=== PATIENT | female | born 1975 | race Caucasian/White ===

== ENCOUNTER 2019-02-09 07:05 | Inpatient (IN) | payer OTHER ==
[~2019-02-09 07:05] MED LIST: Bupivacaine 0.25% 10 ML SDV ONE
[2019-02-09] MEDS ORDERED: Nalbuphine 10 MG/1 ML Vial IVPUSH PRN (07:23)
[2019-02-09] MEDS ORDERED: Ondansetron 4 MG/2 ML SDV IVPUSH PRN ×2 (07:23→10:10)
[2019-02-09] MEDS ORDERED: Sodium Chloride 0.9% 10 ML Syringe FLUSH PRN (07:23)
--- NOTE | 2019-02-09 07:26 | PCM.LDHP ---
L&D History of Present Illness - General Date of Service: 02/09/19 Admit Problem/Dx: Patient Status Order with Admit Dx/Problem 02/09/19 07:23 Patient Status [ADT] Routine Admission Diagnosis/Problem Admission Diagnosis/Problem Advanced maternal age during Source of Information: Patient History Limitations: Reports: No Limitations - History of Present Illness Introduction:: Patient is a 43 y/o at 39 5/7 wks who presents for IOL for AMA. Doing well. Continues to have discomfort in here hips/back. Irregular contractions. Notes good FM. 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: , Spontaneous (x1), Other (See Below ) (20 week loss presumed cervical incompetence) : 6 Para: 3 LMP (Approximate): Neurological History: Reports: Migraines Psychiatric History: Reports: Anxiety, Depression - Past Surgical History HEENT Surgical History: Reports: Oral Surgery (wisdom tooth) Female Surgical History: Reports: Section, LEEP, Tubal Ligation, Other (See Below) (Cerclage x4) Social & Family History - Tobacco Use Smoking Status *Q: Former Smoker - Caffeine Use Caffeine Use: Reports: Coffee - Alcohol Use Alcohol Use History: No - Recreational Drug Use Recreational Drug Use: No H&P Review of Systems - Review of Systems: Review Of Systems: See Below General: Reports: No Symptoms Pulmonary: Reports: No Symptoms Cardiovascular: Reports: No Symptoms Gastrointestinal: Reports: No Symptoms Genitourinary: Reports: No Symptoms Musculoskeletal: Reports: Back Pain Psychiatric: Reports: No Symptoms L&D Exam - Exam Exam: See Below - OB Specific Contraction Intensity: Irritability Movement: Active Heart Tones: Present Heart Tones per Min: 135 Heart Rate (FHR) Variability: Moderate (6-25 bmp) Presentation: Vertex - Orellana Score Orellana Score Cervix Position: Midposition Orellana Score Consistency: Soft Orellana Score Effacement: >80% Orellana Score Dilation: 3-4 cm Orellana Score 's Station: -1 ,0 Orellana Score Total: 10 - Exam General: Alert, Oriented, Cooperative Lungs: Clear to Auscultation, Normal Respiratory Effort Cardiovascular: Regular Rate, Regular Rhythm GI/Abdominal Exam: Soft, Non-Tender Genitourinary: Normal external exam Extremities: Normal Inspection Skin: Warm, Dry, Intact - Patient Data Result Diagrams: 02/09/19 07:45 - Problem List (1) 39 weeks gestation of SNOMED Code(s): 54353743 ICD Code: Z3A.39 - 39 WEEKS GESTATION OF Status: Acute Current Visit: Yes (2) AMA (advanced maternal age) multigravida 35+ SNOMED Code(s): 611726341 ICD Code: O09.529 - SUPERVISION OF ELDERLY MULTIGRAVIDA, UNSPECIFIED TRIMESTER Status: Acute Current Visit: Yes Qualifiers: Trimester: third trimester Qualified Code(s): O09.523 - Supervision of elderly multigravida, third trimester (3) History of SNOMED Code(s): 477336337 ICD Code: Z98.891 - HISTORY OF UTERINE SCAR FROM PREVIOUS SURGERY Status: Acute Current Visit: Yes (4) Desires (vaginal after ) trial SNOMED Code(s): 071995094, 635576132 ICD Code: O34.219 - MATERNAL CARE FOR UNSP TYPE SCAR FROM PREVIOUS DEL Status: Acute Current Visit: Yes Problem List Initiated/Reviewed/Updated: Yes Orders Last 24hrs: Active Orders 24 hr Category Date Time Status Patient Status [ADT] Routine ADT 02/09/19 07:23 Ordered Communication Order [RC] ASDIRECTED Care 02/09/19 07:23 Ordered Communication Order [RC] ASDIRECTED Care 02/09/19 07:23 Ordered Communication Order [RC] ASDIRECTED Care 02/09/19 07:23 Ordered Monitoring [RC] INTERMITTENT Care 02/09/19 07:23 Ordered Non Stress Test [RC] PER UNIT ROUTINE Care 02/09/19 07:23 Ordered Notify Provider [RC] ASDIRECTED Care 02/09/19 07:23 Ordered Notify Provider [RC] PRN Care 02/09/19 07:23 Ordered Peripheral IV Care [RC] . DIRECTED Care 02/09/19 07:24 Ordered Vaginal Exam [RC] ASDIRECTED Care 02/09/19 07:23 Ordered Vital Signs [RC] ASDIRECTED Care 02/09/19 07:23 Ordered Vital Signs [RC] PER UNIT ROUTINE Care 02/09/19 07:23 Ordered Regular Diet [DIET] Diet 02/09/19 Breakfast Ordered CBC W/O DIFF,HEMOGRAM [HEME] Routine Lab 02/09/19 07:23 Ordered RAPID PLASMA REAGIN,RPR [CHEM] Routine Lab 02/09/19 07:23 Ordered TYPE AND SCREEN [BBK] Routine Lab 02/09/19 07:23 Ordered Lactated Ringers [Ringers, Lactated] 1,000 ml Med 02/09/19 07:30 Ordered IV ASDIRECTED Nalbuphine [Nubain] Med 02/09/19 07:23 Ordered 10 mg IVPUSH Q2H PRN Ondansetron [Zofran] Med 02/09/19 07:23 Ordered 4 mg IVPUSH Q4H PRN Oxytocin/Lactated Ringers [Pitocin in LR 10 Units/1,000 Med 02/09/19 07:30 Ordered ML] 10 unit in 1,000 ml IV .CONTINUOUS Oxytocin/Lactated Ringers [Pitocin in LR 10 Units/1,000 Med 02/09/19 07:30 Ordered ML] 10 unit in 1,000 ml IV TITRATE Sodium Chloride 0.9% [Saline Flush] Med 02/09/19 07:23 Ordered 10 ml FLUSH ASDIRECTED PRN Electronic Heart Tones Internal [WOMSER] Per Unit Oth 02/09/19 07:23 Ordered Routine Peripheral IV Insertion Adult [OM.PC] Routine Oth 02/09/19 07:23 Ordered Assessment/Plan Comment:: * Labs * GBS negative, no need for antibiotics * Pitocin and AROM for IOL * Pain management per patient preference * Anticipate
[2019-02-09] MEDS ORDERED: Oxytocin/Lactated Ringers 10 UNIT/1,000 ML BAG IV SCH ×2 (07:30)
[2019-02-09] MEDS: Lactated Ringers 1,000 ML IV SCH ×3 (08:30→12:05)
[2019-02-09] MEDS ORDERED: fentaNYL 100 MCG/2 ML SDV EPIDUR PRN (10:10)
[2019-02-09] MEDS ORDERED: fentaNYL/Bupivacaine/NS 2 MCG-0.125% 250 ML EPIDUR PRN (10:10)
[2019-02-09] MEDS ORDERED: ePHEDrine 50 MG/ML SDV IVPUSH PRN (10:10)
--- NOTE | 2019-02-09 10:12 | PCM.PREANE ---
Preanesthetic Assessment - Anesthesia/Transfusion/Family Hx Anesthesia History: Prior Anesthesia Without Reaction Family History of Anesthesia Reaction: No Transfusion History: No Prior Transfusion(s) Intubation History: Unknown - Review of Systems General: No Symptoms Pulmonary: No Symptoms Cardiovascular: No Symptoms Gastrointestinal: No Symptoms (GERD) Neurological: Headache (migraines), Tingling (Right leg sciatica with : 08/13) Other: Reports: Depression, Anxiety - Physical Assessment NPO Status Date: 02/09/19 NPO Status Time: 06:30 Vital Signs: Last Vital Signs Temp 36.4 C 02/09/19 07:44 Pulse Resp 18 02/09/19 07:44 BP 128/79 02/09/19 07:44 Pulse Ox 98 02/09/19 07:44 Height: 1.7 m Weight: 100.698 kg ASA Class: 2 Mental Status: Alert & Oriented x3 Airway Class: Mallampati = 2 Dentition: Reports: Normal Dentition, Caries Thyro-Mental Finger Breadths: 3 Mouth Opening Finger Breadths: 3 ROM/Head Extension: Full Lungs: Clear to Auscultation, Normal Respiratory Effort Cardiovascular: Regular Rate, Regular Rhythm, No Murmurs - Lab Values: Laboratory Last Values WBC 5.80 K/mm3 (3.98-10.04) 02/09/19 07:45 RBC 4.14 M/mm3 (3.98-5.22) 02/09/19 07:45 Hgb 12.1 gm/dl (11.2-15.7) 02/09/19 07:45 Hct 36.5 % (34.1-44.9) 02/09/19 07:45 MCV 88.2 fl (79.4-94.8) 02/09/19 07:45 MCH 29.2 pg (25.6-32.2) 02/09/19 07:45 MCHC 33.2 g/dl (32.2-35.5) 02/09/19 07:45 RDW Std Deviation 46.1 fL (36.4-46.3) 02/09/19 07:45 Plt Count 203 K/mm3 (182-369) 02/09/19 07:45 MPV 9.7 fl (9.4-12.3) 02/09/19 07:45 Above labs reviewed and noted and within acceptable ranges to proceed with epidural if desired. - Allergies Allergies/Adverse Reactions: Allergies Allergy/AdvReac Type Severity Reaction Status Date / Time acetaminophen [From Percocet] Allergy Redness Verified 01/28/16 17:20 oxycodone [From Percocet] Allergy Redness Verified 01/28/16 17:20 propoxyphene Allergy Redness Verified 01/28/16 17:20 [From Darvocet-N] - Anesthesia Plan Pre-Op Medication Ordered: None - Acknowledgements Anesthesia Type Planned: Epidural Pt an Appropriate Candidate for the Planned Anesthesia: Yes Alternatives and Risks of Anesthesia Discussed w Pt/Guardian: Yes Pt/Guardian Understands and Agrees with Anesthesia Plan: Yes PreAnesthesia Questionnaire - Past Health History Medical/Surgical History: Denies 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: Neurological History: Reports: Migraines Psychiatric History: Reports: Anxiety, Depression - Past Surgical History Female Surgical History: Reports: Section, LEEP, Tubal Ligation, Other (See Below) - SUBSTANCE USE Smoking Status *Q: Former Smoker Tobacco Use Within Last Twelve Months: No Second Hand Smoke Exposure: No Recreational Drug Use History: No - HOME MEDS Home Medications: Home Meds buPROPion [Wellbutrin] 75 mg PO DAILY 01/21/16 [History] - CURRENT (IN HOUSE) MEDS Current Meds: Current Medications Ephedrine Sulfate (Ephedrine Sulfate) 5 mg IVPUSH ASDIRECTED PRN PRN Reason: Hypotension Fentanyl (Sublimaze) 100 mcg EPIDUR Q3H PRN PRN Reason: Pain Fentanyl/Bupivacaine HCl (Fentanyl/Bupivacaine/Ns 2 Mcg-0.125% 250 Ml) ml EPIDUR CONTINUOUS PRN PRN Reason: Pain Lactated Ringer's (Ringers, Lactated) 1,000 mls @ 40 mls/hr IV ASDIRECTED DONOVAN Last Admin: 02/09/19 08:30 Dose: 40 mls/hr Oxytocin/Lactated Ringer's (Pitocin In Lr 10 Units/1,000 Ml) 10 unit in 1,000 mls @ 12 mls/hr IV TITRATE DONOVAN; Protocol Last Titration: 02/09/19 09:07 Dose: 4 munits/min, 24 mls/hr Oxytocin/Lactated Ringer's (Pitocin In Lr 10 Units/1,000 Ml) 10 unit in 1,000 mls @ 500 mls/hr IV .CONTINUOUS DONOVAN Phenylephrine HCl 1 mg/ Sodium (Chloride) 10.1 mls @ 1 mls/sec IV TITRATE DONOVAN; Protocol Nalbuphine HCl (Nubain) 10 mg IVPUSH Q2H PRN PRN Reason: Pain Ondansetron HCl (Zofran) 4 mg IVPUSH Q4H PRN PRN Reason: Nausea/Vomiting Ondansetron HCl (Zofran) 4 mg IVPUSH ONETIME PRN PRN Reason: Nausea/Vomiting Sodium Chloride (Saline Flush) 10 ml FLUSH ASDIRECTED PRN PRN Reason: Keep Vein Open
[2019-02-09] MEDS ORDERED: Phenylephrine 1 MG in Sodium Chloride 0.9% 10 ML IV SCH (10:15)
[2019-02-09] MEDS ORDERED: fentaNYL 100 MCG/2 ML SDV ONE (10:21)
--- NOTE | 2019-02-09 19:45 | PCM.DEL ---
L & D Note - General Info Date of Service: 02/09/19 - Delivery Note Labor: Induced by ARM, Induced by Oxytocin Delivery Outcome: Livebirth Infant Delivery Method: Spontaneous Vaginal Delivery-Single Infant Delivery Mode: Vacuum Extraction Presentation: Right Occiput Posterior (ROP) Nuchal Cord: None Anesthesia Type: Epidural Amniotic Fluid Description: Clear Episiotomy Type: Midline Suture type: Vicryl Suture size: 2-0 Placenta: Intact, Spontaneous Cord: 3 Vessels Estimated Blood Loss: 200 : Bulb Syringe, Stimulated, Warmed, Landis Used, Warmer Used Score 1 min: 6 Score 5 min: 8 Delivery Comments (Free Text/Narrative):: The patient was pushing in the dorsal lithotomy position. Sterile vaginal exam complete/complete/+3 station. Patient began complaining of severe right shoulder pain during pushing effort. This escalated as time went on. head thought to be in ZAC position. Maternal pushing effort was good and the pelvis was felt to be adequate for an instrument assisted delivery. Given increasing pain and associated variable decelerations that were widening decision made to proceed with vacuum assisted vaginal delivery. The mushroom cup was placed without difficulty at 1906. There was one pop off at 191. Re- applied at 1911 and with another pop off at 1916. Did at this point decide to make a midline episiotomy to facility delivery. Had replaced vacuum one more time, but did not maintain suction and so discarded. Patient encouraged to push and delivery occurred from ROP presentation at 192. No nuchal cord present. With gentle downward traction the shoulders and body delivered. The umbilical cord was clamped and cut and the was taken to warmer for assessment. Cord gas segment obtained. Cord blood obtained. Placenta allowed time to separate and expelled intact. Inspection of the perineum following delivery with midline episiotomy only, no extension. This was repaired with a 2-0 vicryl in the typical fashion. Vacuum Extractor Progress Note - Alternative Labor Strategies Considered Alternative Labor Strategies Considered:: Reports: Yes Strategies Considered:: Reports: Contraction Intensity Adequate, Position Changes Used to Facilitate Rotation & Descent, Empty Bladder Indications Considered:: Reports: Yes Indications:: Reports: Suspicion of Immediate or Potential Compromise ( also concerns for possible impending uterine rupture given shoulder pain ) Time Out:: Reports: Yes - Patient Prepared Patient Prepared:: Reports: Yes Informed Consent:: Reports: Verbal Risks: Reports: Yes Risks Include:: Reports: Laceration, Shoulder Dystocia, Maternal Injury Anesthesia/Analgesia Adequate:: Reports: Yes - Probability of Success High Probability of Success:: Reports: Yes Weight Estimated:: Reports: AGA Patient Diabetic:: Reports: No Pelvis Adequate:: Reports: Yes Position:: Thought to be ZAC, was ROP Asynclitic:: Reports: No Station:: +3 - Application Time Maximum Application Time & Number of Pop-Offs Predetermined:: Reports: Yes Maximum Pressure Maintained in Green Zone (cm Hg):: 550 Total Application Time (min): *max=20min: 11 Number of Times Cup Disengaged:: 2 Type of Vacuum Used:: Reports: Cup: Mushroom type Vacuum Extraction: Successful - Exit Strategy Exit strategy available:: Reports: Yes and resuscitation teams readily available:: Reports: Yes - General Info Date of Service: 02/09/19 - Patient Data Vitals - Most Recent: Last Vital Signs Temp 36.4 C 02/09/19 07:44 Pulse Resp 18 02/09/19 07:44 BP 128/79 02/09/19 07:44 Pulse Ox 98 02/09/19 07:44 Weight - Most Recent: 100.698 kg I&O - Last 24 Hours: Intake & Output 02/09/19 02/09/19 02/09/19 06:59 14:59 22:59 Intake Total 1999 120 Balance 1999 120 - Problem List & Annotations (1) 39 weeks gestation of SNOMED Code(s): 21170017 Code(s): Z3A.39 - 39 WEEKS GESTATION OF Status: Acute Current Visit: Yes (2) AMA (advanced maternal age) multigravida 35+ SNOMED Code(s): 748566736 Code(s): O09.529 - SUPERVISION OF ELDERLY MULTIGRAVIDA, UNSPECIFIED TRIMESTER Status: Acute Current Visit: Yes Qualifiers: Trimester: third trimester Qualified Code(s): O09.523 - Supervision of elderly multigravida, third trimester (3) History of SNOMED Code(s): 615376939 Code(s): Z98.891 - HISTORY OF UTERINE SCAR FROM PREVIOUS SURGERY Status: Acute Current Visit: Yes (4) Desires (vaginal after ) trial SNOMED Code(s): 516663380, 446343755 Code(s): O34.219 - MATERNAL CARE FOR UNSP TYPE SCAR FROM PREVIOUS DEL Status: Acute Current Visit: Yes (5) Vacuum-assisted vaginal delivery SNOMED Code(s): 53299322201157454 Code(s): Z37.9 - OUTCOME OF DELIVERY, UNSPECIFIED Status: Acute Current Visit: Yes - Problem List Review Problem List Initiated/Reviewed/Updated: Yes - My Orders Last 24 Hours: My Active Orders 02/09/19 07:23 Patient Status [ADT] Routine Communication Order [RC] ASDIRECTED Communication Order [RC] ASDIRECTED Communication Order [RC] ASDIRECTED Monitoring [RC] INTERMITTENT Notify Provider [RC] ASDIRECTED Notify Provider [RC] PRN Vaginal Exam [RC] ASDIRECTED Vital Signs [RC] ASDIRECTED Vital Signs [RC] PER UNIT ROUTINE RAPID PLASMA REAGIN,RPR [CHEM] Routine Nalbuphine [Nubain] 10 mg IVPUSH Q2H PRN Ondansetron [Zofran] 4 mg IVPUSH Q4H PRN Sodium Chloride 0.9% [Saline Flush] 10 ml FLUSH ASDIRECTED PRN Electronic Heart Tones Internal [WOMSER] Per Unit Routine Peripheral IV Insertion Adult [OM.PC] Routine 02/09/19 07:24 Peripheral IV Care [RC] . DIRECTED 02/09/19 07:30 Lactated Ringers [Ringers, Lactated] 1,000 ml IV ASDIRECTED Oxytocin/Lactated Ringers [Pitocin in LR 10 Units/1,000 ML] 10 unit in 1,000 ml IV .CONTINUOUS Oxytocin/Lactated Ringers [Pitocin in LR 10 Units/1,000 ML] 10 unit in 1,000 ml IV TITRATE 02/09/19 Breakfast Regular Diet [DIET] - Assessment Assessment:: 43 y/o G6 now P4024 PPD#0 from [facility] at 39 5/7 wks - Plan Plan:: [facility] * Routine cares * Encourage breast feeding * Discharge home in 2 days
[2019-02-09] MEDS ORDERED: Docusate Sodium 100 MG Cap PO PRN (20:28)
[2019-02-09] MEDS ORDERED: Benzocaine/Menthol 20%-0.5% Spray 56 GM Canister TOP PRN (20:28)
[2019-02-09] MEDS ORDERED: Witch Hazel Medicated Pads 40/Jar TOP PRN (20:28)
[2019-02-09] MEDS ORDERED: diphenhydrAMINE 50 MG/ML SDV ONE (21:13)
[2019-02-09] MEDS: Ibuprofen 600 MG Tab PO PRN (21:36)
[2019-02-10] MEDS: Ibuprofen 600 MG Tab PO PRN ×3 (03:38→20:31)
--- NOTE | 2019-02-10 05:36 | PCM.PNPP ---
- General Info Date of Service: 02/10/19 Functional Status: Reports: Pain Controlled, Tolerating Diet, Ambulating, Urinating - Review of Systems General: Reports: No Symptoms Pulmonary: Reports: No Symptoms Cardiovascular: Reports: No Symptoms Gastrointestinal: Reports: No Symptoms Genitourinary: Reports: Other (perineal pain) Musculoskeletal: Reports: No Symptoms Neurological: Reports: No Symptoms - General Info Date of Service: 02/10/19 - Patient Data Vital Signs - Most Recent: Last Vital Signs Temp 36.4 C 02/09/19 07:44 Pulse Resp 18 02/09/19 07:44 BP 128/79 02/09/19 07:44 Pulse Ox 98 02/09/19 07:44 Weight - Most Recent: 100.698 kg I&O - Last 24 Hours: Intake & Output 02/09/19 02/09/19 02/10/19 14:59 22:59 06:59 Intake Total 1999 120 Balance 1999 120 Lab Results - Last 24 Hours: Laboratory Results - last 24 hr 02/09/19 02/09/19 Range/Units 07:45 07:45 WBC 5.80 (3.98-10.04) K/mm3 RBC 4.14 (3.98-5.22) M/mm3 Hgb 12.1 (11.2-15.7) gm/dl Hct 36.5 (34.1-44.9) % MCV 88.2 (79.4-94.8) fl MCH 29.2 (25.6-32.2) pg MCHC 33.2 (32.2-35.5) g/dl RDW Std Deviation 46.1 (36.4-46.3) fL Plt Count 203 (182-369) K/mm3 MPV 9.7 (9.4-12.3) fl Blood Type A POSITIVE Gel Antibody Screen Negative Med Orders - Current: Current Medications Acetaminophen (Tylenol) 650 mg PO Q4H PRN PRN Reason: mild pain or fever Benzocaine/Menthol (Dermoplast Pain Relief Coats) 0 gm TOP ASDIRECTED PRN PRN Reason: Perineal Comfort Measure Last Admin: 02/09/19 21:39 Dose: 1 canister Docusate Sodium (Colace) 100 mg PO BID PRN PRN Reason: Constipation Last Admin: 02/09/19 21:37 Dose: 100 mg Ibuprofen (Motrin) 600 mg PO Q6H PRN PRN Reason: Mild pain or fever Last Admin: 02/10/19 03:38 Dose: 600 mg Witch Santa (Tucks) 1 pad TOP ASDIRECTED PRN PRN Reason: Perineal Comfort Measure Last Admin: 02/09/19 21:39 Dose: 1 canister Discontinued Medications Diphenhydramine HCl (Benadryl) Confirm Administered Dose 50 mg .ROUTE .[employer] ONE Stop: 02/09/19 21:14 Last Admin: 02/09/19 21:19 Dose: 50 mg Ephedrine Sulfate (Ephedrine Sulfate) 5 mg IVPUSH ASDIRECTED PRN PRN Reason: Hypotension Fentanyl (Sublimaze) 100 mcg EPIDUR Q3H PRN PRN Reason: Pain Last Admin: 02/09/19 12:08 Dose: 100 mcg Fentanyl (Sublimaze) Confirm Administered Dose 100 mcg .ROUTE .[employer] ONE Stop: 02/09/19 10:22 Fentanyl/Bupivacaine HCl (Fentanyl/Bupivacaine/Ns 2 Mcg-0.125% 250 Ml) 250 ml EPIDUR CONTINUOUS PRN PRN Reason: Pain Last Admin: 02/09/19 10:34 Dose: 250 ml Lactated Ringer's (Ringers, Lactated) 1,000 mls @ 40 mls/hr IV ASDIRECTED DONOVAN Last Admin: 02/09/19 12:05 Dose: 40 mls/hr Oxytocin/Lactated Ringer's (Pitocin In Lr 10 Units/1,000 Ml) 10 unit in 1,000 mls @ 12 mls/hr IV TITRATE DONOVAN; Protocol Last Titration: 02/09/19 13:47 Dose: 12 munits/min, 72 mls/hr Oxytocin/Lactated Ringer's (Pitocin In Lr 10 Units/1,000 Ml) 10 unit in 1,000 mls @ 500 mls/hr IV .CONTINUOUS DONOVAN Phenylephrine HCl 1 mg/ Sodium (Chloride) 10.1 mls @ 1 mls/sec IV TITRATE DONOVAN; Protocol Nalbuphine HCl (Nubain) 10 mg IVPUSH Q2H PRN PRN Reason: Pain Ondansetron HCl (Zofran) 4 mg IVPUSH Q4H PRN PRN Reason: Nausea/Vomiting Ondansetron HCl (Zofran) 4 mg IVPUSH ONETIME PRN PRN Reason: Nausea/Vomiting Sodium Chloride (Saline Flush) 10 ml FLUSH ASDIRECTED PRN PRN Reason: Keep Vein Open - Infant Interaction Disposition, : in Room with Family Infant Interaction: Holding Infant Feeding: Attempted ; Nursed Fair/Poor Support Person: - Recovery Exam Fundal Tone: Firm Fundal Level: At Umbilicus Fundal Placement: Midline Lochia Amount: Small Bladder Status: Voiding Urinary Elimination: Voided - Exam General: Alert, Oriented, Cooperative GI/Abdominal Exam: Soft, Non-Tender Extremities: Normal Inspection Skin: Warm, Dry, Intact - Problem List & Annotations (1) 39 weeks gestation of SNOMED Code(s): 80454740 Code(s): Z3A.39 - 39 WEEKS GESTATION OF Status: Acute Current Visit: Yes (2) AMA (advanced maternal age) multigravida 35+ SNOMED Code(s): 330984009 Code(s): O09.529 - SUPERVISION OF ELDERLY MULTIGRAVIDA, UNSPECIFIED TRIMESTER Status: Acute Current Visit: Yes Qualifiers: Trimester: third trimester Qualified Code(s): O09.523 - Supervision of elderly multigravida, third trimester (3) History of SNOMED Code(s): 881984599 Code(s): Z98.891 - HISTORY OF UTERINE SCAR FROM PREVIOUS SURGERY Status: Acute Current Visit: Yes (4) Desires (vaginal after ) trial SNOMED Code(s): 828521493, 742460301 Code(s): O34.219 - MATERNAL CARE FOR UNSP TYPE SCAR FROM PREVIOUS DEL Status: Acute Current Visit: Yes (5) Vacuum-assisted vaginal delivery SNOMED Code(s): 23446219855255346 Code(s): Z37.9 - OUTCOME OF DELIVERY, UNSPECIFIED Status: Acute Current Visit: Yes - Problem List Review Problem List Initiated/Reviewed/Updated: Yes - My Orders Last 24 Hours: My Active Orders 02/09/19 07:23 Communication Order [RC] ASDIRECTED Communication Order [RC] ASDIRECTED Communication Order [RC] ASDIRECTED Monitoring [RC] INTERMITTENT Notify Provider [RC] ASDIRECTED Notify Provider [RC] PRN Vaginal Exam [RC] ASDIRECTED Vital Signs [RC] ASDIRECTED Vital Signs [RC] PER UNIT ROUTINE 02/09/19 07:24 Peripheral IV Care [RC] . DIRECTED 02/09/19 20:28 Activity as Tolerated [RC] PER UNIT ROUTINE Vital Signs [RC] ASDIRECTED Acetaminophen [Tylenol] 650 mg PO Q4H PRN Benzocaine/Menthol [Dermoplast Pain Relief Coats] See Dose Instructions TOP ASDIRECTED PRN Docusate Sodium [Colace] 100 mg PO BID PRN Ibuprofen [Motrin] 600 mg PO Q6H PRN Witch Santa [Tucks] 1 pad TOP ASDIRECTED PRN Assess Lochia [WOMSER] Per Unit Routine Assess Uterine Involution [WOMSER] Per Unit Routine Breast Pump [WOMSER] Per Unit Routine Heat Therapy [OM.PC] PRN Perineal Care [OM.PC] Per Unit Routine Peripheral IV Discontinue [OM.PC] Routine Sitz Bath [OM.PC] Per Unit Routine 02/09/19 Dinner Regular Diet [DIET] 02/10/19 20:28 Heat Therapy [OM.PC] PRN - Assessment Assessment:: 43 y/o PPD#1 from [facility] - Plan Plan:: * Routine cares * Breast feeding * Reviewed options to manage perineal pain * Discharge home in 1 day
--- NOTE | 2019-02-10 07:42 | PCM48HPAN ---
Post Anesthesia Note - EVALUATION WITHIN 48HRS OF ANESTHETIC Vital Signs in Normal Range: Yes Patient Participated in Evaluation: Yes Respiratory Function Stable: Yes Airway Patent: Yes Cardiovascular Function Stable: Yes Hydration Status Stable: Yes Pain Control Satisfactory: Yes Nausea and Vomiting Control Satisfactory: Yes Mental Status Recovered: Yes Vital Signs: Last Vital Signs Temp 97.6 F 02/09/19 07:44 Pulse Resp 18 02/09/19 07:44 BP 128/79 02/09/19 07:44 Pulse Ox 98 02/09/19 07:44
[2019-02-10] MEDS: Acetaminophen 325 MG Tab PO PRN ×2 (08:41→17:46)
[2019-02-11] MEDS: Ibuprofen 600 MG Tab PO PRN (08:19)
--- NOTE | 2019-02-11 08:37 | PCM.PNPP ---
- General Info Date of Service: 02/11/19 Functional Status: Reports: Pain Controlled, Tolerating Diet, Ambulating, Urinating - Review of Systems General: Reports: No Symptoms Pulmonary: Reports: No Symptoms Cardiovascular: Reports: No Symptoms Gastrointestinal: Reports: No Symptoms Genitourinary: Reports: No Symptoms Musculoskeletal: Reports: No Symptoms Neurological: Reports: No Symptoms - General Info Date of Service: 02/11/19 - Patient Data Vital Signs - Most Recent: Last Vital Signs Temp 36.7 C 02/11/19 04:01 Pulse 73 02/11/19 04:01 Resp 16 02/11/19 04:01 BP 107/75 02/11/19 04:01 Pulse Ox 97 02/11/19 04:01 Weight - Most Recent: 100.698 kg I&O - Last 24 Hours: Intake & Output 02/10/19 02/11/19 02/11/19 22:59 06:59 14:59 Intake Total 120 Balance 120 Med Orders - Current: Current Medications Acetaminophen (Tylenol) 650 mg PO Q4H PRN PRN Reason: mild pain or fever Last Admin: 02/10/19 17:46 Dose: 650 mg Benzocaine/Menthol (Dermoplast Pain Relief [place]) 0 gm TOP ASDIRECTED PRN PRN Reason: Perineal Comfort Measure Last Admin: 02/09/19 21:39 Dose: 1 canister Docusate Sodium (Colace) 100 mg PO BID PRN PRN Reason: Constipation Last Admin: 02/09/19 21:37 Dose: 100 mg Ibuprofen (Motrin) 600 mg PO Q6H PRN PRN Reason: Mild pain or fever Last Admin: 02/11/19 08:19 Dose: 600 mg Witch [place] (Tucks) 1 pad TOP ASDIRECTED PRN PRN Reason: Perineal Comfort Measure Last Admin: 02/09/19 21:39 Dose: 1 canister Discontinued Medications Bupivacaine HCl (Sensorcaine-Mpf 0.25%) 10 ml .ROUTE .STK-MED ONE Stop: 02/09/19 00:01 Diphenhydramine HCl (Benadryl) Confirm Administered Dose 50 mg .ROUTE .STK-MED ONE Stop: 02/09/19 21:14 Last Admin: 02/09/19 21:19 Dose: 50 mg Ephedrine Sulfate (Ephedrine Sulfate) 5 mg IVPUSH ASDIRECTED PRN PRN Reason: Hypotension Fentanyl (Sublimaze) 100 mcg EPIDUR Q3H PRN PRN Reason: Pain Last Admin: 02/09/19 12:08 Dose: 100 mcg Fentanyl (Sublimaze) Confirm Administered Dose 100 mcg .ROUTE .STK-MED ONE Stop: 02/09/19 10:22 Fentanyl/Bupivacaine HCl (Fentanyl/Bupivacaine/Ns 2 Mcg-0.125% 250 Ml) 250 ml EPIDUR CONTINUOUS PRN PRN Reason: Pain Last Admin: 02/09/19 10:34 Dose: 250 ml Lactated Ringer's (Ringers, Lactated) 1,000 mls @ 40 mls/hr IV ASDIRECTED DONOVAN Last Admin: 02/09/19 12:05 Dose: 40 mls/hr Oxytocin/Lactated Ringer's (Pitocin In Lr 10 Units/1,000 Ml) 10 unit in 1,000 mls @ 12 mls/hr IV TITRATE DONOVAN; Protocol Last Titration: 02/09/19 13:47 Dose: 12 munits/min, 72 mls/hr Oxytocin/Lactated Ringer's (Pitocin In Lr 10 Units/1,000 Ml) 10 unit in 1,000 mls @ 500 mls/hr IV .CONTINUOUS DONOVAN Phenylephrine HCl 1 mg/ Sodium (Chloride) 10.1 mls @ 1 mls/sec IV TITRATE DONOVAN; Protocol Nalbuphine HCl (Nubain) 10 mg IVPUSH Q2H PRN PRN Reason: Pain Ondansetron HCl (Zofran) 4 mg IVPUSH Q4H PRN PRN Reason: Nausea/Vomiting Ondansetron HCl (Zofran) 4 mg IVPUSH ONETIME PRN PRN Reason: Nausea/Vomiting Sodium Chloride (Saline Flush) 10 ml FLUSH ASDIRECTED PRN PRN Reason: Keep Vein Open - Infant Interaction Infant Disposition, : in Room with Family Infant Interaction: Holding Feeding: Attempted ; Nursed Fair/Poor Support Person: - Recovery Exam Fundal Tone: Firm Fundal Level: 1 Fingerbreadths Below Umbilicus Fundal Placement: Midline Lochia Amount: Small Lochia Color: Rubra/Red Perineum Description: Other (see below) Other Perinuem Description: epis with repair Episiotomy/Laceration: Approximated Bladder Status: Voiding Urinary Elimination: Voided - Exam General: Alert, Oriented, Cooperative GI/Abdominal Exam: Soft, Non-Tender Extremities: Normal Inspection Skin: Warm, Dry, Intact - Problem List & Annotations (1) 39 weeks gestation of SNOMED Code(s): 55840195 Code(s): Z3A.39 - 39 WEEKS GESTATION OF Status: Acute Current Visit: Yes (2) AMA (advanced maternal age) multigravida 35+ SNOMED Code(s): 452531432 Code(s): O09.529 - SUPERVISION OF ELDERLY MULTIGRAVIDA, UNSPECIFIED TRIMESTER Status: Acute Current Visit: Yes Qualifiers: Trimester: third trimester Qualified Code(s): O09.523 - Supervision of elderly multigravida, third trimester (3) History of SNOMED Code(s): 335961223 Code(s): Z98.891 - HISTORY OF UTERINE SCAR FROM PREVIOUS SURGERY Status: Acute Current Visit: Yes (4) Desires (vaginal after ) trial SNOMED Code(s): 553907880, 578100739 Code(s): O34.219 - MATERNAL CARE FOR UNSP TYPE SCAR FROM PREVIOUS DEL Status: Acute Current Visit: Yes (5) Vacuum-assisted vaginal delivery SNOMED Code(s): 26738900292905885 Code(s): Z37.9 - OUTCOME OF DELIVERY, UNSPECIFIED Status: Acute Current Visit: Yes - Problem List Review Problem List Initiated/Reviewed/Updated: Yes - My Orders Last 24 Hours: My Active Orders 02/10/19 20:28 Heat Therapy [OM.PC] PRN - Assessment Assessment:: 43 y/o PPD#2 from VAVD - Plan Plan:: * Routine cares * Breast feeding * Discharge home today
--- NOTE | 2019-02-11 08:43 | PCM.DCSUM1 ---
Discharge Summary - Discharge Data Discharge Date: 02/11/19 Discharge Disposition: Home, Self-Care 01 Condition: Good - Referral to Home Health Primary Care Physician: Katia Sheppard MD - Discharge Diagnosis/Problem(s) (1) 39 weeks gestation of SNOMED Code(s): 02908586 ICD Code: Z3A.39 - 39 WEEKS GESTATION OF Status: Acute Current Visit: Yes (2) AMA (advanced maternal age) multigravida 35+ SNOMED Code(s): 605496659 ICD Code: O09.529 - SUPERVISION OF ELDERLY MULTIGRAVIDA, UNSPECIFIED TRIMESTER Status: Acute Current Visit: Yes Qualifiers: Trimester: third trimester Qualified Code(s): O09.523 - Supervision of elderly multigravida, third trimester (3) History of SNOMED Code(s): 872345041 ICD Code: Z98.891 - HISTORY OF UTERINE SCAR FROM PREVIOUS SURGERY Status: Acute Current Visit: Yes (4) Desires (vaginal after ) trial SNOMED Code(s): 230307025, 319652138 ICD Code: O34.219 - MATERNAL CARE FOR UNSP TYPE SCAR FROM PREVIOUS DEL Status: Acute Current Visit: Yes (5) Vacuum-assisted vaginal delivery SNOMED Code(s): 51754953140184812 ICD Code: Z37.9 - OUTCOME OF DELIVERY, UNSPECIFIED Status: Acute Current Visit: Yes - Patient Summary/Data Complications: None Consults: None Recommended Follow-up Testing/Procedures: Follow up in 3 weeks for post check Hospital Course: 43 y/o presented at 39 5/7 wks or IOL/TOLAC for AMA. History of cervical incompetence and early pre-viable delivery with first . Then 3 full term deliveries with cerclage management. last delivery via due to inability to remove cerclage. Induction done with pitocin and AROM. She progressed well to complete dilation. Pushed about 3 1/4 hours and at that time had complaints of significant shoulder pain and widening variable decelerations. Concerns were for possible impending rupture. VAVD performed. See delivery note for full details. patient did well and was discharged home on PPD#2 - Patient Instructions Diet: Regular Diet as Tolerated Activity: As Tolerated Activity, Other: Pelvic rest for 6 weeks Driving: [address] Today Showering/Bathing: May Shower Showering/Bathing, Other: May Bathe Notify Provider of: Fever, Increased Pain, Swelling and Redness, Drainage, Nausea and/or Vomiting - Discharge Plan *PRESCRIPTION DRUG MONITORING PROGRAM REVIEWED*: Not Applicable *COPY OF PRESCRIPTION DRUG MONITORING REPORT IN PATIENT INOCENCIO: Not Applicable Home Medications: Home Meds Docusate Sodium [Colace] 100 mg PO BID PRN cap 02/11/19 [Rx] Ibuprofen [Motrin] 600 mg PO Q6H PRN tablet 02/11/19 [Rx] Referrals: Katia Sheppard MD [Primary Care Provider] - (3 weeks for check ) - Discharge Summary/Plan Comment DC Time >30 min.: No - Patient Data Vitals - Most Recent: Last Vital Signs Temp 36.7 C 02/11/19 04:01 Pulse 73 02/11/19 04:01 Resp 16 02/11/19 04:01 BP 107/75 02/11/19 04:01 Pulse Ox 97 02/11/19 04:01 Weight - Most Recent: 100.698 kg I&O - Last 24 hours: Intake & Output 02/10/19 02/11/19 02/11/19 22:59 06:59 14:59 Intake Total 120 Balance 120
[2019-02-11 09:53] VITALS: BP 115/71; PULSE 68
== END 2019-02-11 10:48 | disposition home or self-care (01) | DRG 807 ==
LOC: UNDOADMOB 07:05 → JD.OB 07:05 → OBSVTOIN 19:21 → JD.OB 19:22
PROVIDERS: ADMIT Obstetrics & Gynecology; ATTEND Obstetrics & Gynecology
PROC: 10D07Z6 Extraction of Products of Conception, Vacuum, Via Natural or Artificial Opening (ICD-10-PCS; principal; 2019-02-09)
PROC: 10907ZC Drainage of Amniotic Fluid, Therapeutic from Products of Conception, Via Natural or Artificial Opening (ICD-10-PCS; 2019-02-09)
PROC: 3E033VJ Introduction of Other Hormone into Peripheral Vein, Percutaneous Approach (ICD-10-PCS; 2019-02-09)
PROC: 0W8NXZZ Division of Female Perineum, External Approach (ICD-10-PCS; 2019-02-09)
PROC: 3E0R3BZ Introduction of Anesthetic Agent into Spinal Canal, Percutaneous Approach (ICD-10-PCS; 2019-02-09)
DX: O34.211 Maternal care for low transverse scar from previous cesarean delivery (principal); Z37.0 Single live birth; Z87.891 Personal history of nicotine dependence; Z3A.39 39 weeks gestation of pregnancy; Z88.5 Allergy status to narcotic agent; Z88.6 Allergy status to analgesic agent
CPT/HCPCS: 01967; 36415; 51701; 51703; 59025; 59409; 85027; 86850; 86900; 86901; A9270-GY; J1200; J2590; J3010; J3490; J7120